=== PATIENT | male | born 1955 | race Caucasian/White ===

== ENCOUNTER 2021-12-02 14:58 | Outpatient (REF) | payer MEDICARE, MEDICAID, SELFPAY ==
--- NOTE | ~2021-12-02 | XR_ITS ---
EXAMINATION: XR CHEST CLINICAL INFORMATION: Cough COMPARISON: None TECHNIQUE: 2 views of the chest were obtained. FINDINGS: No significant abnormality is noted involving the heart, lungs, mediastinum, bony thorax or soft tissues. XR/XR chest 2V IMPRESSION: Unremarkable examination.
== END 2021-12-02 14:59 | disposition home or self-care (01) ==
LOC: HO.XRAY 14:58
PROVIDERS: PCP Internal Medicine; Visit Provider Internal Medicine
DX: R05.9 Cough, unspecified (principal)
CPT/HCPCS: 71046

== ENCOUNTER → 2021-12-08 09:48 | Outpatient (BNVA) | payer MEDICAID, SELFPAY | PROVIDERS: PCP Internal Medicine; Referring Provider Internal Medicine; Visit Provider Internal Medicine ==

== ENCOUNTER → 2021-12-08 13:32 | Outpatient (REF) | payer MEDICARE, MEDICAID, SELFPAY ==
--- NOTE | 2021-12-08 13:45 | CA_ITS ---
Transthoracic Echocardiogram Patient (Last, First, Middle): James Woodward, Gender: Male Date of : 1955 Age: 66 Procedure Date: 12/08/2021 Procedure Type: Transthoracic Echocardiogram Location: OP Height: 180.34 cm Weight: 80.74 kg BSA: 2.01 m2 Heart Rate: bpm BP: 130 / 57 mmHg Jr. Java Developer: CROW Payne MD: Adair Villarreal MD Crossbar Frame Wirer: Parveen Singh MD Symptoms: I35.0 - Nonrheumatic aortic (valve) stenosis Study Quality: Fair ECG Rhythm: Sinus Conclusions: - 1. Moderately dilated left ventricle with [id number] LV systolic dysfunction with LVEF of 40-45% with grade 2 diastolic dysfunction. 2. Presence of regional wall motion abnormality suggestive underlying coronary artery disease 3. Severe aortic stenosis with peak gradient of 93 mmHg and mean gradient of 53 mmHg 4. Normal RV systolic pressure normal RA pressures 5. No pericardial effusion 6. Mildly dilated ascending aorta Findings Left Ventricle Moderately increased left ventricular cavity size. There is normal left ventricular wall thickness. The left ventricular systolic function is mild to moderately decreased. The visually estimated ejection fraction is between 40-45%. Spectral Doppler is indicative of a pseudonormal filling pattern. E/E prime ratio is >15, consistent with elevated filling pressures. Evidence suggests grade II (moderate) diastolic dysfunction. Wall Motion Rest Echo Findings The inferoseptal wall, the basal inferior, and mid inferior segments are hypokinetic. The inferolateral wall and basal anterolateral segment are akinetic. All other scored wall segments showed normal motion. Right Ventricle Mildly increased right ventricular cavity size. There is normal right ventricular systolic function. Atria The left atrium is mildly dilated. Interatrial shunt cannot be excluded. The right atrium is normal in size. Aortic Valve There is moderate calcification of the aortic valve. There is moderate thickening of the aortic valve. There is severe aortic valve stenosis. The peak aortic gradient is 94 mmHg.The mean gradient is 53 mmHg. The aortic valve area is 0.75 cm2. There is mild to moderate aortic valve regurgitation. Mitral Valve There is mild anterior and posterior mitral leaflet thickening. The posterior mitral leaflet has restricted mobility. There is mild mitral valve regurgitation. There is no mitral valve stenosis. Tricuspid Valve Likely normal tricuspid valve structure and function. There is mild tricuspid valve regurgitation. The right ventricular systolic pressure is normal. There is no evidence of pulmonary hypertension. Great Vessels The pulmonary artery was not well visualized. There is mild dilatation of the ascending aorta measuring 3.80 cm. Venous The inferior vena cava is normal in size and collapses greater than 50% with inspiration. Pericardium/Pleural There is no evidence of pericardial effusion. Prior Study Comparison Significant changes compared to prior study dated: 12/21/2018. Aortic stenosis is severe. There is reduction LV systolic function with regional wall motion abnormality. Measurements 2D Linear Measurements IVSd: 1.03 0.6-0.9/0.6-1.0 cm LVIDd: 6.16 3.9-5.3/4.2-5.9 cm LVIDd Index: 3.06 2.4-3.2/2.2-3.1 cm/m2 LVIDs: 4.96 2.0-3.6 cm LVPWd: 1.06 0.7-1.1 cm Ao Root: 3.60 2.1-3.5 cm LA Diam: 4.20 2.7-3.8/3.0-4.0 cm LAIDs Index: 2.09 1.5-2.3 cm/m2 LV Mass: 340.88 67-162/88-224 g LV Mass Index: 169.59 43-95/49-115 g/m2 LVOT Diam: 2.00 3.0+(-)1.3 cm 2D Systolic Function EF 4C: 51.30 >55% EF 2C: 45.60 >55% EF BiP: 49.00 >55% Mitral Valve MV Pk E: 1.18 MV PK A: 0.57 MV Decel Time: 169.00 E/A: 2.10 E'Lateral: 9.46 E'Medial: 5.55 E/E' Med: 21.30 E/E' Lat: 12.50 PHT: 50.00 MVA PHT: 4.40 Decel Emmons: 6.99 Aortic Valve AoV Pk Pedro Pablo: 4.84 AoV Mn Pedro Pablo: 3.39 AoV VTI: 1.10 AoV Pk Grad: 94.00 Aov Mn Grad: 53.00 SHAD Cont.VTI: 0.75 AI Pk Pedro Pablo: 4.57 AI Emmons: 7.50 LVOT LVOT Pk Pedro Pablo: 1.17 LVOT Mn Pedro Pablo: 0.77 LVOT VTI: 0.26 LVOT Pk Grad: 5.00 LVOT Mn Grad: 3.00 LVOT Diam: 2.00 LVOT Area: 3.14 Diastolic Function MV Pk E: 1.18 MV Pk A: 0.57 E/A: 2.10 E'Medial: 5.55 E/E' Med: 21.30 E' Laterial: 9.46 E/E' Lat: 12.50 Right Ventricle TAPSE (mm): 3.55 TVS' Pedro Pablo: 13.10 Tricuspid Valve TR Pk Pedro Pablo: 2.15 TR Pk Grad: 18.00 RA Press: 8.00 RVSP: 26.00 Great Vessels Aorta Ao Root-2D: 3.60 2.0-3.7 cm Ao Asc: 3.80 2.1-3.4 cm Ao Arch: 3.50 Updated in Other Vendor System with Status of Final Parveen Singh MD electronically signed on 12/08/2021 4:10:12 PM with status of Final
== END ==
LOC: HO.CARD 13:32
PROVIDERS: PCP Internal Medicine; Visit Provider Internal Medicine
DX: I35.0 Nonrheumatic aortic (valve) stenosis (principal); R06.02 Shortness of breath
CPT/HCPCS: 93005; 93306; 99212

== ENCOUNTER 2021-12-08 14:57 | Emergency (ER) | payer MEDICARE, MEDICAID, SELFPAY ==
--- NOTE | ~2021-12-08 | XR_ITS ---
EXAMINATION: XR CHEST CLINICAL INFORMATION: Status post intubation COMPARISON: December 02, 2021 TECHNIQUE: AP portable views of the chest was obtained. FINDINGS: 2 views of the chest are provided. On image 1 the endotracheal tube tip appears to lie approximately 3.5 cm from the ernestina. On the second x-ray the endotracheal tube tip appears to lie approximately 6.5 cm above the ernestina. There is diffuse bilateral interstitial and airspace disease present with a perihilar pattern which may be related to pulmonary edema of cardiogenic or noncardiogenic etiology. An inflammatory or infectious etiology could also have this appearance but would be less likely with this predominantly perihilar pattern rather than peripheral pattern. No pneumothorax or significant pleural effusion. Heart normal size. XR/XR chest 1V IMPRESSION: Diffuse bilateral interstitial and airspace disease with what appears to be more vague perihilar distribution rather than a peripheral distribution which may relate to pulmonary edema of cardiogenic or noncardiogenic etiology. Endotracheal tube tip on second image lies approximately 6.5 cm above the ernestina.
--- NOTE | 2021-12-08 15:48 | ED_ITS ---
HPI - General Adult General Stated complaint: SOB Time Seen by Provider: 12/08/21 15:17 Source: patient, family and other (Conference Planning Manager) History of Present Illness HPI narrative: Patient has been having intermittent episodes of palpitations and dyspnea. He went to see his header setup operator to get an echocardiogram today. The echocardiogram showed wall motion abnormalities and severe aortic stenosis. While getting the echo he became acutely dyspneic with palpitations. This is apparently the worst episode per his . They immediately transferred him to the emergency department. On arrival to the emergency department he was severely dysphonic, ledezma, with a rhythm of atrial fibrillation at 150-180 beats per minute. Unable to tolerate laying backward. Shortly thereafter he became bradycardic and pulseless. CPR was started immediately. Patient is a smoker. He is trying to quit. No recent infectious symptoms other than long-term cough. Not vaccinated against COVID. No other recent known complaints. He denied chest pain on arrival. Related Data Home Medications Medication Instructions Recorded Confirmed amlodipine 5 mg tablet 5 mg PO DAILY 12/08/21 12/08/21 lisinopril 10 1 tab PO DAILY 12/08/21 12/08/21 mg-hydrochlorothiazide 12.5 mg tablet Allergies Allergy/AdvReac Type Severity Reaction Status Date / Time No Known Allergies Allergy Verified 12/08/21 09:53 Review of Systems Verdana 4l Review of Systems: Verdana 4d Unable to Verdana 4d obtain Verdana 4d [facility] Past Medical History Medical History (Updated 12/08/21 @ 16:05 by Jd Shepard MD) Non-rheumatic aortic stenosis Surgical History (Updated 12/08/21 @ 09:52 by STEPH Myers) No pertinent past surgical history Family History Family History (Updated 12/08/21 @ 09:53 by STEPH Myers) Father CVD (cardiovascular disease) Heart attack Mother CVD (cardiovascular disease) S/P CABG x 5 Social History Social History (Updated 12/08/21 @ 09:57 by STEPH Myers) Patient Tobacco Use Status: Current everyday Tobacco user Cigarettes Per Day: 3 Advance Directives: No Advance Directives Information Provided: No Physical Exam Verdana 4l Const: Verdana 4d Verdana 4d Other: Verdana 4d Verdana 4d On arrival patient in distress. Verdana 4d Verdana 4l HENMT: Verdana 4d Verdana 4d Other: Verdana 4d Verdana 4d Positive JVD Verdana 4d Verdana 4l Resp: Verdana 4d Verdana 4d Other: Verdana 4d Verdana 4d Bilateral rales throughout but equal Verdana 4d Verdana 4l Cardio: Verdana 4d Verdana 4d Other: Verdana 4d Verdana 4d Irregularly irregular. Tachycardic at 150-180 beats per minute Verdana 4d Verdana 4l Skin: Verdana 4d Verdana 4d Other: Verdana 4d Verdana 4d Pale, mottled Verdana 4d Verdana 4l Neuro: Verdana 4d Verdana 4d Other: Verdana 4d Verdana 4d Awake but slow to respond Verdana 4d Course Course Course Narrative: Shortly after arrival, patient became unresponsive. He was bradycardic in PE a. High quality CPR started immediately. Shortly thereafter patient went into VFib arrest. Multiple rounds of epinephrine given. See code sheet. Patient was also shocked at 200 joules multiple times, see code sheet. Cardiology present throughout the code. Bedside echo shows no evidence of tamponade. Patient when in the PE a on several occasions. It ventrally after over 35 minutes of high quality CPR, a sustained rhythm returned and patient regained pulses. He was intubated during the code. CC with [facility] contacted and patient will be transferred there. Repeat EKG shows wide complex irregular rhythm at approximately 100 beats per minute. Possible as T elevation although with left bundle pattern. Levophed started for low blood pressure. Critical Care Time Critical Care Time Critical Care Time: Yes Total Critical Care Time: 120 Attestation: Critical care time outside of separately billable procedures Discharge Plan Discharge Clinical Impression: Cardiac arrest Patient Disposition: Xfer [facility] Transfer Details: Patient transferred to [facility] CCU as cardiac arrest likely sequelae of critical aortic stenosis with probable ischemic cardiac disease superimposed. Prescriptions: No Action amlodipine 5 mg tablet 5 mg PO DAILY 0RF lisinopril-hydrochlorothiazide 10-12.5 mg tablet 1 tab PO DAILY 0RF
[2021-12-08 15:53] LABS: Glucose, Whole Blood 109 mg/dL (60-115)
--- NOTE | 2021-12-08 16:02 | P.CONCA_ITS ---
History of Present Illness History of Present Illness Date of Service: 12/08/21 Requesting physician: Jd Shepard Chief complaint: Cardiac arrest Narrative: I was involved in James's care while he was in cardiac arrest. He was seen earlier today in cardiology office by Dr. Villarreal after few years, patient has completed shortness of breath and by exam was noted to have aortic stenosis. He was therefore sent down to the echo lab for an urgent echocardiogram which showed severe aortic stenosis with mean gradient of 53 mm Hg which is significant progression compared to prior echocardiogram and showed LV systolic dysfunction with grade 2 diastolic dysfunction as well as regional wall motion abnormality suggestive underlying coronary artery disease. His RV systolic pressure and RA pressures are within normal limits. However in the echo lab he got significantly short of breath and he was therefore referred immediately to emergency room. When he came to the Emergency was noted to be in rapid heart rate, EKG consistent with atrial fibrillation rapid ventricular response with ST depression and patient florid pulmonary edema. Given his new onset atrial fibrillation rapid artery was given 5 mg of Cardizem. After receiving Cardizem he decompensated and went into full cardiac arrest. Initially he had pulseless electrical activity. Immediate cardiopulmonary resuscitation was started. Patient was given multiple rounds of epinephrine every 3 minutes. They remained non perfusing rhythm and then subsequently degenerated into ventricular fibrillation. He was then given multiple defibrillation episodes total of 3. He was also given IV amiodarone 300 mg bolus and couple of ampules of sodium bicarbonate. Epinephrine was continuously given. After about 27-30 minutes of good quality CPR patient had a regular rhythm with a good blood pressure of systolic 150. CPR was therefore discontinued. Patient maintain his blood pressure with improvement in his perfusion with end-tidal CO2 improving. His oxygenation was maintained. His ET tube showed pink frothy sputum consistent with pulmonary edema. His repeat EKG showed irregular rhythm with wide complex rhythm with changing QRS complexes. Patient was then started on went, he is over breathing the vent at this point in time. However his mental status is currently diminished. His shortness of breath was pretty sudden. Prior to this he was getting exertionally short of breath but said that he was doing well at home until today. Review of Systems Verdana 4l Review of Systems: Yes unobtainable due to endotracheal Verdana 4d tube PMFSH Past Medical History Medical History Non-rheumatic aortic stenosis Family History Family History Father CVD (cardiovascular disease) Heart attack Mother CVD (cardiovascular disease) S/P CABG x 5 Surgical History Surgical History No pertinent past surgical history Social History Social History Patient Tobacco Use Status: Current everyday Tobacco user Cigarettes Per Day: 3 Advance Directives: No Advance Directives Information Provided: No Meds Allergies Allergy/AdvReac Type Severity Reaction Status Date / Time No Known Allergies Allergy Verified 12/08/21 09:53 Home Medications Medication Instructions Recorded Confirmed Last Taken Type amlodipine 5 mg 5 mg PO DAILY 12/08/21 12/08/21 Unknown History tablet lisinopril 10 1 tab PO DAILY 12/08/21 12/08/21 Unknown History mg-hydrochlorothiaz [place] 12.5 mg tablet Physical Exam Verdana 4l Const: Verdana 4d Verdana 4d General: Verdana 4d ill appearing and other (Intubated unconscious) Verdana 4d Nutritional Appearance: Verdana 4d average body habitus Verdana 4l HENMT: Verdana 4d Verdana 4d Head: Verdana 4d Yes normocephalic and Yes atraumatic Verdana 4l Neck: Verdana 4d Verdana 4d Neck: Verdana 4d Yes trachea midline, Yes supple and Yes no JVD Verdana 4d Carotids: Verdana 4d delayed carotid upstroke Verdana 4l Resp: Verdana 4d Verdana 4d Effort & Inspection: Verdana 4d normal respiratory effort Verdana 4d Auscultation: Verdana 4d rales Verdana 4l Cardio: Verdana 4d Verdana 4d Rhythm: Verdana 4d abnormal rhythm irregularly irregular Verdana 4d Heart sounds: Verdana 4d S1 normal heart sound present and Murmur heart sound present systolic late and soft Verdana 4l GI: Verdana 4d Verdana 4d Auscultation: Verdana 4d normal bowel sounds Verdana 4l Skin: Verdana 4d Verdana 4d General skin exam: Verdana 4d no rashes or lesions noted and mottling Verdana 4l Extrem: Verdana 4d Verdana 4d General: Verdana 4d Yes no clubbing, cyanosis or edema Objective Labs and Meds Lab results: Laboratory Results - last 24 hr 12/08/21 15:11 POC Glucose 109 Assessment and Plan (1) Cardiac arrest: Status: Acute Resuscitated cardiac arrest initially pulseless electrical activity subsequent leave VFib arrest to receiving multiple intervention including multiple rounds of epinephrine as well as amiodarone and sodium bicarbonate. Patient subsequently resuscitated with return of spontaneous circulation with improved perfusion. Patient remained in pulmonary edema. Most likely etiology appears to be ischemic heart disease with reduced coronary perfusion in the setting of underlying critical aortic stenosis and reduced LV systolic function. Patient currently is underwent and overriding the ventilator. Neurologic status is unclear at this point in time. However patient will need to be transferred to [facility] for critical care. Discussed the case with Dr. Juan was accepted the patient to the CCU. Patient will be transferred to CCU for supportive care. Patient blood pressure has slightly dropped afterwards and was started on norepinephrine drip to maintain perfusion and blood pressure. Further treatment based on the neurologic recovery and will require intervention and cardiac catheterization if there is potential neurologic recovery noted. This will be evident the next few days. I was at bedside for the entire cardiac arrest process and also discussed with the critical nature of his disease and his prognosis. She understands agrees. Agrees to be transferred to [facility]. Arrangements have been made. Greater than 60 minutes was spent in managing his complex care Procedures Date of Service Date of Service: 12/08/21
[2021-12-08 16:06] VITALS: O2SAT 92
[2021-12-08 16:08] VITALS: BP 109/68; PULSE 112; TEMP 32; O2SAT 92
[2021-12-08 16:22] LABS: COVID-19 Test Negative (Negative); IDNOW Serial# 9DD0AD1C
--- NOTE | 2021-12-08 16:28 | ED_ITS ---
HPI - CPR General Chief Complaint: Cardiac Arrest/CPR Stated Complaint: SOB Time Seen by Provider: 12/08/21 15:17 Source: patient, family and other (Loan Analyst) History of Present Illness HPI narrative: This note is to document emergency intubation done on this patient during a [facility] emergency department. Related Data Home Medications Medication Instructions Recorded Confirmed amlodipine 5 mg tablet 5 mg PO DAILY 12/08/21 12/08/21 lisinopril 10 1 tab PO DAILY 12/08/21 12/08/21 mg-hydrochlorothiazide 12.5 mg tablet Allergies Allergy/AdvReac Type Severity Reaction Status Date / Time No Known Allergies Allergy Verified 12/08/21 09:53 [facility] Past Medical History Medical History Non-rheumatic aortic stenosis Surgical History No pertinent past surgical history Family History Family History Father CVD (cardiovascular disease) Heart attack Mother CVD (cardiovascular disease) S/P CABG x 5 Social History Social History Patient Tobacco Use Status: Current everyday Tobacco user Cigarettes Per Day: 3 Advance Directives: No Advance Directives Information Provided: No MDM - Cardiac Arrest/CPR Lab Data Labs: Lab Results 12/08/21 12/08/21 Range/Units 15:11 15:57 POC Glucose 109 (60-115) mg/dL COVID-19 ([facility]IA) Negative (Negative) COVID-19 Clin Com See Note Procedures Intubation Time out performed: No sedative: none Laryngoscope: fiber optic video scope ET Tube Size: 7.5 ET Tube Uncuffed: No Tube Secured Depth (cm): 23 Tube Secured Location: lips Tube Placement Confirmation: visualized tube passing through cords, equal breath sounds bilaterally, no breath sounds over epigastrium and confirmation by capnometry Patient Tolerated Procedure: no complications Intubation Complications: none Discharge Plan Discharge Clinical Impression: Cardiac arrest Patient Disposition: [facility] Transfer Details: Patient transferred to [facility] CCU as cardiac arrest likely sequelae of critical aortic stenosis with probable ischemic cardiac disease superimposed. Prescriptions: No Action amlodipine 5 mg tablet 5 mg PO DAILY 0RF lisinopril-hydrochlorothiazide 10-12.5 mg tablet 1 tab PO DAILY 0RF
[2021-12-08] MEDS: Midazolam HCl/PF 2 MG/2 ML VIAL 4 MG IVPUSH (16:45)
[2021-12-08] MEDS: fentaNYL citrate/PF 100 MCG/2 ML VIAL 50 MCG IVPUSH (16:46)
--- NOTE | 2021-12-09 08:42 | ECG_ITS ---
Test Reason : sob Blood Pressure : / mmHG Vent. Rate : 116 BPM Atrial Rate : 116 BPM P-R Int : 302 ms QRS Dur : 102 ms QT Int : 310 ms P-R-T Axes : 077 056 043 degrees QTc Int : 430 ms Poor data quality Baseline artefact Undetermined rhythm Possible Left atrial enlargement ST depression, consider subendocardial injury Abnormal ECG No previous ECGs available Please repeat the EKG Referred By: Jd Shepard Electronically Signed By:TAMI ENGEL MD
== END 2021-12-08 17:01 | disposition short-term general hospital (02) ==
PROVIDERS: Emergency Provider Emergency Medicine; PCP Internal Medicine
DX: I46.9 Cardiac arrest, cause unspecified (principal); I35.0 Nonrheumatic aortic (valve) stenosis; Z20.822 Contact with and (suspected) exposure to COVID-19; F17.200 Nicotine dependence, unspecified, uncomplicated
CPT/HCPCS: 31500; 71045; 82947; 87635; 93005; 94002; 94003; 96374; 96375; 99285; 99291; 99292; J0171; J0282; J0461; J2250; J3010